=== PATIENT | female | born 1990 | race American Indian/Alaskan Native ===

== ENCOUNTER 2021-12-12 12:40 | Emergency (ER) | payer MEDICAID, OTHER ==
[2021-12-12 12:52] VITALS: BP 122/70
[2021-12-12 14:20] LABS: Bilirubin,Urine NEG (Negative); Blood,Urine SM (Negative); Color,Urine Amber (Yellow)
[2021-12-12 14:21] LABS: HCG Qualitative,Urine Negative (Negative)
[2021-12-12 14:35] LABS: Mucus,Urine 2+ /HPF
[2021-12-12] MEDS ORDERED: KETOROLAC 10 MG TAB PO ONE (17:26)
[2021-12-12] MEDS ORDERED: cephALEXin 500 MG CAP PO ONE (17:27)
[2021-12-12] MEDS ORDERED: ACETAMINOPHEN W/CODEINE 300-30 MG TAB PO ONE (17:27)
--- NOTE | 2021-12-12 17:32 | Emergency Department Report ---
ED Female HPI - General Chief complaint: Urogenital-Female Stated complaint: POSS GENITAL WARTS Time Seen by Provider: 12/12/21 16:33 Source: patient Mode of arrival: Ambulatory Limitations: No Limitations - History of Present Illness Initial comments: 31 yo black female who was recently diagnosed with genital warts presents to ed for evaluation of dyuria and pain to perineal area. She states that he had an outbreak of external warts and have been attempting to treat it at home with creams. She states that area of outbreak has become more irritated and sore, so she attempted to see an banking pin adjuster today but her appointment was canceled, so she decided to come here for further evaluation. Complaint: dysuria -: Gradual, week(s) (1.5) Location: perineum Severity scale (0 -10): 10 Quality: burning, aching Consistency: constant Worsens with: urination Are you Now?: No Associated Symptoms: dysuria. denies: vaginal discharge, vaginal bleeding, abdominal pain, nausea/vomiting, fever/chills, loss of appetite - Related Data Sexually active: Yes Previous Rx's Medication Instructions Recorded Last Taken Type Ferrous Sulfate [Feosol 325 MG tab] 325 mg PO BID #60 tablet 02/04/15 Unknown Rx Ibuprofen [Motrin 600 MG tab] 600 mg PO Q6H PRN #60 tablet 02/04/15 Unknown Rx Naproxen [Naprosyn] 500 mg PO BID 7 Days #14 tab 12/12/21 Unknown Rx Podofilox [Condylox 0.5%] 1 applicatio TP BID #1 tube 12/12/21 Unknown Rx cephALEXin [Keflex] 500 mg PO BID 7 Days #14 cap 12/12/21 Unknown Rx Allergies Allergy/AdvReac Type Severity Reaction Status Date / Time No Known Allergies Allergy Verified 02/01/15 17:34 ED Review of Systems ROS: Stated complaint: POSS GENITAL WARTS Other details as noted in HPI Comment: All other systems reviewed and negative Constitutional: denies: chills, fever, malaise, weakness Eyes: denies: eye discharge ENT: denies: dental pain, congestion Respiratory: denies: cough, shortness of breath Cardiovascular: denies: chest pain, palpitations Gastrointestinal: denies: abdominal pain, nausea, vomiting, diarrhea, hematemesis, hematochezia Genitourinary: dysuria. denies: urgency, frequency, hematuria, discharge Musculoskeletal: denies: back pain Neurological: denies: headache, weakness ED Past Medical Hx - Past Medical History Hx Hypertension: No Hx Congestive Heart Failure: No Hx Diabetes: No Hx Deep Vein Thrombosis: No Hx Renal Disease: No Hx Sickle Cell Disease: No Hx Seizures: No Hx Asthma: No Hx COPD: No Hx HIV: No Additional medical history: HPV, Colon CA - Surgical History Additional Surgical History: colonectomy - Social History Smoking Status: Never Smoker - Medications Home Medications: Home Medications Medication Instructions Recorded Confirmed Last Taken Type Ferrous Sulfate [Feosol 325 MG tab] 325 mg PO BID #60 tablet 02/04/15 Unknown Rx Ibuprofen [Motrin 600 MG tab] 600 mg PO Q6H PRN #60 tablet 02/04/15 Unknown Rx Naproxen [Naprosyn] 500 mg PO BID 7 Days #14 tab 12/12/21 Unknown Rx Podofilox [Condylox 0.5%] 1 applicatio TP BID #1 tube 12/12/21 Unknown Rx cephALEXin [Keflex] 500 mg PO BID 7 Days #14 cap 12/12/21 Unknown Rx ED Physical Exam - General Limitations: No Limitations General appearance: alert, in no apparent distress - Head Head exam: Present: atraumatic, normocephalic - Eye Eye exam: Present: normal appearance. Absent: conjunctival injection, periorbital swelling, periorbital tenderness - Neck Neck exam: Present: normal inspection. Absent: lymphadenopathy - Respiratory Respiratory exam: Present: normal lung sounds bilaterally. Absent: respiratory distress, wheezes, rales, rhonchi, stridor, chest wall tenderness - Cardiovascular Cardiovascular Exam: Present: regular rate, normal heart sounds - GI/Abdominal GI/Abdominal exam: Present: soft, normal bowel sounds. Absent: distended, tenderness, guarding, rebound, rigid - External exam: Present: erythema, lesions, other (one area consistent with external genital wart that is noted to be erythematous and tender to any touch.). Absent: normal external exam - Extremities Exam Extremities exam: Present: normal inspection, full ROM, normal capillary refill - Back Exam Back exam: Present: normal inspection. Absent: CVA tenderness (R), CVA tenderness (L) - Neurological Exam Neurological exam: Present: alert, oriented X3, normal gait - Psychiatric Psychiatric exam: Present: normal affect, normal mood - Skin Skin exam: Present: warm, dry, normal color ED Course Vital Signs 12/12/21 12/12/21 12:48 17:44 Temperature 98.9 F Pulse Rate 80 Respiratory 18 Rate Blood Pressure 122/70 O2 Sat by Pulse 100 100 Oximetry ED Medical Decision Making - Medical Decision Making 31 yo black female who was recently diagnosed with genital warts presents to ed for evaluation of dyuria and pain to perineal area. She states that he had an outbreak of external warts and have been attempting to treat it at home with creams. She states that area of outbreak has become more irritated and sore, so she attempted to see an banking pin adjuster today but her appointment was canceled, so she decided to come here for further evaluation. Physical exam consistent with irritated genital warts and urine positive for UA. She will be treated with 7 day coarse of Keflex for ua and podofilox. She is advised to take medications as prescribed, follow up pcp or banking pin adjuster if no improvement or worsening symptoms, or follow up in Ed for any concerning symptoms. She verbalized understanding of and agreement with plan of care. Critical care attestation.: If time is entered above; I have spent that time in minutes in the direct care of this critically ill patient, excluding procedure time. ED Disposition Clinical Impression: Genital warts UTI (urinary tract infection) Qualifiers: Urinary tract infection type: acute cystitis Hematuria presence: with hematuria Qualified Code(s): N30.01 - Acute cystitis with hematuria Disposition: HOME / SELF CARE / HOMELESS Is pt being admited?: No Does the pt Need Aspirin: No Condition: Stable Instructions: Human Papillomavirus, [id number], Urinary Tract Infection, Adult, [id number], Genital Warts, [id number], Urinary Tract Infection, Adult, Podofilox topical gel Additional Instructions: Take medications as prescribed. Follow-up with RECENTERER as previously planned. Return to the emergency department for any complications. Prescriptions: Podofilox [Condylox 0.5%] 1 applicatio TP BID #1 tube cephALEXin [Keflex] 500 mg PO BID 7 Days #14 cap Naproxen [Naprosyn] 500 mg PO BID 7 Days #14 tab Referrals: CHRSI MOTA MD [Staff Physician] - 3-5 Days SUSANNA ROSS MD [Staff Physician] - 3-5 Days Forms: Work/School Release Form(ED) Time of Disposition: 17:32
== END 2021-12-12 18:05 | disposition home or self-care (01) ==
LOC: ED 12:40
DX: N39.0 Urinary tract infection, site not specified (principal); B07.8 Other viral warts
CPT/HCPCS: 81001; 81025; 99283